=== PATIENT | male | born 1990 | race Two or more races ===

== ENCOUNTER 2024-08-21 12:12 | Emergency (ER) | payer SELFPAY ==
[2024-08-21 12:26] VITALS: BMI 25.2
[2024-08-21 14:28] LABS: BASO % 0.3 % (0-2.0); HEMATOCRIT 43.3 % (35.4-49); HEMOGLOBIN 14.7 GM/dL (11.7-16.9); LYMPH % 28.9 % (8-40); MCH 32.6 pg (25.7-33.7); MCHC 33.9 g/dl (32.0-35.9); MEAN CELL VOLUME 96.3 fl (80-96); MEAN PLT VOLUME 8.6 fl (7.5-11.1); MONO % 10.5 % (3.8-10.2); NEUT % 59.3 % (42.8-82.8); PLATELET COUNT 227 10^3/uL (134-434); RDW 13.7 % (11.9-15.9); WHITE BLOOD COUNT 4.8 K/mm3 (4.0-10.0)
[2024-08-21 14:31] LABS: VENOUS BASE EXCESS 2.2 mmol/L (-2-2); VENOUS O2 SATURATION 48.1 % (70-80); VENOUS PCO2 54.6 mmHg (38-52); VENOUS PH 7.347 (7.310-7.410)
[2024-08-21 14:47] LABS: MAGNESIUM 2.2 mg/dL (1.8-2.4)
[2024-08-21 14:48] LABS: ALBUMIN 4.2 g/dl (3.4-5.0); CALCIUM 9.1 mg/dL (8.5-10.1)
[2024-08-21 14:49] LABS: BLOOD UREA NITROGEN 20.4 mg/dL (7-18)
[2024-08-21 14:52] LABS: CREATININE 0.6 mg/dL (0.55-1.3)
[2024-08-21 14:53] LABS: BILIRUBIN,TOTAL 0.4 mg/dL (0.2-1)
[2024-08-21] MEDS ORDERED: chlordiazePOXIDE HCL 25 MG CAPSULE ONE (15:01)
[2024-08-21] MEDS ORDERED: THIAMINE HCL 200 MG/2 ML VIAL ONE (15:01)
[2024-08-21] MEDS ORDERED: ONDANSETRON 4 MG/2 ML VIAL ONE (15:01)
[2024-08-21] MEDS: chlordiazePOXIDE HCL 25 MG CAPSULE PO ONE (15:10)
[2024-08-21] MEDS: THIAMINE HCL 200 MG/2 ML VIAL IVPB ONE ×2 (15:10)
[2024-08-21] MEDS: ONDANSETRON 4 MG/2 ML VIAL IVPUSH ONE (15:10)
[2024-08-21 15:42] LABS: HIV INTERPRETATION NEGATIVE (NEGATIVE)
[2024-08-21] MEDS ORDERED: ACETAMINOPHEN 325 MG TABLET (FP) ONE (15:52)
[2024-08-21] MEDS: ACETAMINOPHEN 325 MG TABLET (FP) PO ONE (15:55)
[2024-08-21 15:58] VITALS: BP 115/75; PULSE 92; RESP 16
[2024-08-21 16:45] VITALS: TEMP 99
== END 2024-08-21 16:40 ==
LOC: JER 12:12
PROC: 3E033GC Introduction of Other Therapeutic Substance into Peripheral Vein, Percutaneous Approach (ICD-10-PCS; principal; 2024-08-21)
PROC: 3E033GC Introduction of Other Therapeutic Substance into Peripheral Vein, Percutaneous Approach (ICD-10-PCS; 2024-08-21)
DX: F10.930 Alcohol use, unspecified with withdrawal, uncomplicated (principal); Y90.9 Presence of alcohol in blood, level not specified; R11.2 Nausea with vomiting, unspecified; H53.8 Other visual disturbances; R51.9 Headache, unspecified; R25.1 Tremor, unspecified; L29.9 Pruritus, unspecified; M79.641 Pain in right hand; M25.531 Pain in right wrist; R10.9 Unspecified abdominal pain
CPT/HCPCS: 36415; 73110-TC-RT-FY; 73130-TC-RT-FY; 80053; 82010; 82803; 82962; 83690; 83735; 85025; 86803; 87389; 93005; 93010; 99285-25

== ENCOUNTER 2024-08-21 17:40 | Inpatient (IN) | payer SELFPAY ==
[2024-08-21 18:29] VITALS: BMI 25.0
[2024-08-21] MEDS ORDERED: BENZONATATE 200 MG CAPSULE PO PRN (20:24)
[2024-08-21] MEDS ORDERED: guaiFENesin 600 MG TABLET.ER (FP) PO PRN (20:24)
[2024-08-21] MEDS ORDERED: ACETAMINOPHEN 325 MG TABLET (FP) PO PRN (20:24)
[2024-08-21] MEDS ORDERED: hydrOXYzine PAMOATE 25 MG CAPSULE (FP) PO PRN (20:24)
[2024-08-21] MEDS ORDERED: BISMUTH SUBSALICYLATE 524 MG/30 ML PO PRN (20:24)
[2024-08-21] MEDS ORDERED: NICOTINE POLACRILEX 2 MG GUM BUC PRN (20:24)
[2024-08-21] MEDS ORDERED: METHOCARBAMOL 500 MG TABLET PO PRN (20:24)
[2024-08-21] MEDS ORDERED: ONDANSETRON *ODT* 4 MG TABLET SL PRN (20:24)
[2024-08-21] MEDS ORDERED: MAGNESIUM HYDROX 2400MG/30ML ORAL SUSPENSION 30 ML CUP PO PRN (20:24)
[2024-08-21] MEDS ORDERED: DICYCLOMINE HCL 10 MG CAPSULE PO PRN (20:24)
[2024-08-21] MEDS ORDERED: LOPERAMIDE HCL 2 MG CAPSULE PO PRN (20:24)
[2024-08-21] MEDS ORDERED: BENZOCAINE/MENTHOL (CHLORASEPTIC ) LOZENGE MM PRN (20:24)
[2024-08-21] MEDS ORDERED: IBUPROFEN 400 MG TABLET (FP) PO PRN (20:24)
[2024-08-21] MEDS ORDERED: NALOXONE (NARCAN) HCL 4 MG/0.1 ML SPRAY NS PRN (20:24)
[2024-08-21] MEDS ORDERED: MAG HYDROX/AL HYDROX/SIMETH 30 ML UNIT-DOSE CUP PO PRN (20:24)
[2024-08-21] MEDS ORDERED: POLYETHYLENE GLYCOL (HEALTHYLAX) 3350 17 GM PACKET PO PRN (20:24)
[2024-08-21] MEDS ORDERED: chlordiazePOXIDE HCL 25 MG CAPSULE PO PRN (20:27)
[2024-08-22] MEDS: THIAMINE 100 MG TABLET PO SCH (01:19)
[2024-08-22] MEDS: chlordiazePOXIDE HCL 25 MG CAPSULE PO SCH (01:19)
[2024-08-22] MEDS: MELATONIN 5 MG TABLETS PO SCH (01:20)
[2024-08-22] MEDS ORDERED: chlordiazePOXIDE HCL 25 MG CAPSULE ONE (01:21)
[2024-08-22] MEDS: NICOTINE 14 MG/24 HOURS TOPICAL PATCH TD SCH (10:43)
[2024-08-22] MEDS: PRENATAL VITAMINS W/ FOLIC ACID TABLET (FP) PO SCH (10:43)
[2024-08-22] MEDS: IBUPROFEN 600 MG TABLET (FP) PO PRN (12:13)
[2024-08-22] MEDS: QUEtiapine FUMARATE 50 MG TABLET PO SCH (12:13)
[2024-08-22] MEDS: NALTREXONE HCL 50 MG TABLET PO ONE (14:58)
[2024-08-22] MEDS: GABAPENTIN 100 MG CAPSULE PO SCH (14:58)
[2024-08-23] MEDS: chlordiazePOXIDE HCL 25 MG CAPSULE PO SCH (06:33)
[2024-08-23 09:06] VITALS: BP 130/94; PULSE 91; RESP 18; TEMP 98.7
[2024-08-23] MEDS: NALTREXONE HCL 50 MG TABLET PO SCH (09:19)
[2024-08-24] MEDS ORDERED: chlordiazePOXIDE HCL 10 MG CAPSULE PO PRN
[2024-08-24] MEDS ORDERED: chlordiazePOXIDE HCL 10 MG CAPSULE PO SCH (05:00)
[2024-08-25] MEDS ORDERED: chlordiazePOXIDE HCL 10 MG CAPSULE PO SCH (05:00)
[2024-08-26] MEDS ORDERED: chlordiazePOXIDE HCL 10 MG CAPSULE PO ONE (05:00)
== END 2024-08-23 09:50 | disposition home or self-care (01) | DRG 775 ==
LOC: YASAS 17:40 → Y6N 23:44
PROVIDERS: ADMIT Allergy & Immunology; ATTEND Allergy & Immunology
PROC: HZ2ZZZZ Detoxification Services for Substance Abuse Treatment (ICD-10-PCS; principal; 2024-08-21)
DX: F10.230 Alcohol dependence with withdrawal, uncomplicated (principal); F12.20 Cannabis dependence, uncomplicated; F17.210 Nicotine dependence, cigarettes, uncomplicated; F19.282 Other psychoactive substance dependence with psychoactive substance-induced sleep disorder; F19.280 Other psychoactive substance dependence with psychoactive substance-induced anxiety disorder; F32.9 Major depressive disorder, single episode, unspecified; Z62.810 Personal history of physical and sexual abuse in childhood; Z91.410 Personal history of adult physical and sexual abuse; Z63.8 Other specified problems related to primary support group; Z63.0 Problems in relationship with spouse or partner
CPT/HCPCS: 80305; 80307

== ENCOUNTER 2024-09-09 19:16 | Inpatient (IN) | payer SELFPAY ==
[2024-09-09 19:34] VITALS: BMI 25.2
[2024-09-09] MEDS ORDERED: BENZOCAINE/MENTHOL (CHLORASEPTIC ) LOZENGE MM PRN (19:45)
[2024-09-09] MEDS ORDERED: guaiFENesin 600 MG TABLET.ER (FP) PO PRN (19:45)
[2024-09-09] MEDS ORDERED: NALOXONE (NARCAN) HCL 4 MG/0.1 ML SPRAY NS PRN (19:45)
[2024-09-09] MEDS ORDERED: MAGNESIUM HYDROX 2400MG/30ML ORAL SUSPENSION 30 ML CUP PO PRN (19:45)
[2024-09-09] MEDS ORDERED: POLYETHYLENE GLYCOL (HEALTHYLAX) 3350 17 GM PACKET PO PRN (19:45)
[2024-09-09] MEDS ORDERED: MAG HYDROX/AL HYDROX/SIMETH 30 ML UNIT-DOSE CUP PO PRN (19:45)
[2024-09-09] MEDS ORDERED: NICOTINE POLACRILEX 2 MG LOZENGE BC PRN (19:45)
[2024-09-09] MEDS ORDERED: DICYCLOMINE HCL 10 MG CAPSULE PO PRN (19:45)
[2024-09-09] MEDS ORDERED: IBUPROFEN 400 MG TABLET (FP) PO PRN (19:45)
[2024-09-09] MEDS ORDERED: NICOTINE POLACRILEX 2 MG GUM BUC PRN (19:45)
[2024-09-09] MEDS ORDERED: ONDANSETRON *ODT* 4 MG TABLET SL PRN (19:45)
[2024-09-09] MEDS ORDERED: BENZONATATE 200 MG CAPSULE PO PRN (19:45)
[2024-09-09] MEDS ORDERED: diazePAM 5 MG TABLET PO ONE (20:00)
[2024-09-09] MEDS ORDERED: diazePAM 5 MG TABLET ONE (21:56)
[2024-09-09] MEDS: MELATONIN 5 MG TABLETS PO SCH (22:05)
[2024-09-09] MEDS: THIAMINE 100 MG TABLET PO SCH (22:05)
[2024-09-09] MEDS: diazePAM 5 MG TABLET PO ONE (22:05)
[2024-09-09] MEDS ORDERED: diazePAM 5 MG TABLET PO SCH (23:00)
[2024-09-09] MEDS: diazePAM 5 MG TABLET PO SCH (23:00)
[2024-09-09] MEDS: ACETAMINOPHEN 325 MG TABLET (FP) PO PRN (23:22)
[2024-09-09] MEDS: METHOCARBAMOL 500 MG TABLET PO PRN (23:23)
[2024-09-09] MEDS: hydrOXYzine PAMOATE 50 MG CAPSULE (FP) PO ONE (23:37)
[2024-09-10] MEDS: IBUPROFEN 600 MG TABLET (FP) PO PRN (07:49)
[2024-09-10] MEDS: PRENATAL VITAMINS W/ FOLIC ACID TABLET (FP) PO SCH (10:06)
[2024-09-10] MEDS: NICOTINE 7 MG/24 HOURS TOPICAL PATCH TD SCH (10:07)
[2024-09-10] MEDS: diazePAM 5 MG TABLET PO PRN (13:12)
[2024-09-10] MEDS: GABAPENTIN 100 MG CAPSULE PO SCH (13:13)
[2024-09-10] MEDS: METHOCARBAMOL 500 MG TABLET PO PRN (13:13)
[2024-09-10] MEDS: LOPERAMIDE HCL 2 MG CAPSULE PO PRN (13:13)
[2024-09-10] MEDS: BISMUTH SUBSALICYLATE 524 MG/30 ML PO PRN (17:30)
[2024-09-11] MEDS: diazePAM 5 MG TABLET PO SCH (05:06)
[2024-09-11] MEDS ORDERED: diazePAM 5 MG TABLET PO SCH (06:00)
[2024-09-11 09:16] VITALS: BP 119/72; PULSE 78; RESP 17; TEMP 98.2
[2024-09-11 11:38] LABS: BASO % 0.1 % (0-2.0); EOS % 1.9 % (0-4.5); HEMATOCRIT 41.3 % (35.4-49); HEMOGLOBIN 14.1 GM/dL (11.7-16.9); LYMPH % 23.7 % (8-40); MCH 32.6 pg (25.7-33.7); MEAN CELL VOLUME 95.9 fl (80-96); MEAN PLT VOLUME 8.5 fl (7.5-11.1); MONO % 8.8 % (3.8-10.2); NEUT % 65.5 % (42.8-82.8); PLATELET COUNT 254 10^3/uL (134-434); RBC 4.31 M/mm3 (4.00-5.60); RDW 13.7 % (11.9-15.9); WHITE BLOOD COUNT 4.6 K/mm3 (4.0-10.0)
[2024-09-11 11:41] LABS: POTASSIUM 5.4 mmol/L (3.5-5.1)
[2024-09-11 11:43] LABS: CALCIUM 9.1 mg/dL (8.5-10.1)
[2024-09-11 11:44] LABS: ALBUMIN 3.4 g/dl (3.4-5.0)
[2024-09-11 11:45] LABS: BLOOD UREA NITROGEN 16.5 mg/dL (7-18)
[2024-09-11 11:48] LABS: CREATININE 0.8 mg/dL (0.55-1.3)
[2024-09-11 11:49] LABS: BILIRUBIN,TOTAL 0.4 mg/dL (0.2-1); TOT PROT 6.4 g/dl (6.4-8.2)
[2024-09-12] MEDS ORDERED: diazePAM 5 MG TABLET PO SCH (06:00)
[2024-09-13] MEDS ORDERED: diazePAM 5 MG TABLET PO ONE (06:00)
== END 2024-09-11 10:08 | disposition left against medical advice (07) | DRG 770 ==
LOC: YASAS 19:16 → Y3N 22:24
PROVIDERS: ADMIT Allergy & Immunology; ATTEND Allergy & Immunology
PROC: HZ2ZZZZ Detoxification Services for Substance Abuse Treatment (ICD-10-PCS; principal; 2024-09-09)
DX: F10.230 Alcohol dependence with withdrawal, uncomplicated (principal); F12.20 Cannabis dependence, uncomplicated; F17.210 Nicotine dependence, cigarettes, uncomplicated; F32.9 Major depressive disorder, single episode, unspecified; Z86.69 Personal history of other diseases of the nervous system and sense organs
CPT/HCPCS: 36415; 80053; 80305; 80307; 85025; 86803

== ENCOUNTER 2024-12-25 02:12 | Emergency (ER) | payer SELFPAY ==
[2024-12-25 02:20] VITALS: TEMP 99.1; BMI 25.0
[2024-12-25] MEDS: ONDANSETRON *ODT* 4 MG TABLET SL ONE (02:47)
[2024-12-25] MEDS ORDERED: ACETAMINOPHEN INJECTION 100 ML ONE (03:18)
[2024-12-25] MEDS ORDERED: ONDANSETRON 4 MG/2 ML VIAL ONE (03:18)
[2024-12-25] MEDS: ACETAMINOPHEN 1000 MG/100 ML BAG IVPB ONE (03:25)
[2024-12-25] MEDS: ONDANSETRON 4 MG/2 ML VIAL IVPUSH ONE (03:26)
[2024-12-25] MEDS ORDERED: KETOROLAC TROMETHAMINE 15 MG/ML VIAL ONE (03:55)
[2024-12-25] MEDS ORDERED: chlordiazePOXIDE HCL 10 MG CAPSULE ONE (03:55)
[2024-12-25] MEDS: KETOROLAC TROMETHAMINE 15 MG/ML VIAL IVPUSH ONE (04:00)
[2024-12-25] MEDS: chlordiazePOXIDE HCL 10 MG CAPSULE PO ONE (04:00)
[2024-12-25 06:14] VITALS: BP 134/80; PULSE 84; RESP 16
== END 2024-12-25 06:20 | disposition home or self-care (01) ==
LOC: JER 02:12
PROC: 3E033NZ Introduction of Analgesics, Hypnotics, Sedatives into Peripheral Vein, Percutaneous Approach (ICD-10-PCS; principal; 2024-12-25)
PROC: 3E0333Z Introduction of Anti-inflammatory into Peripheral Vein, Percutaneous Approach (ICD-10-PCS; 2024-12-25)
PROC: 3E033GC Introduction of Other Therapeutic Substance into Peripheral Vein, Percutaneous Approach (ICD-10-PCS; 2024-12-25)
DX: M25.521 Pain in right elbow (principal); M25.421 Effusion, right elbow; W01.0XXA Fall on same level from slipping, tripping and stumbling without subsequent striking against object, initial encounter
CPT/HCPCS: 73030-TC-RT-FY; 73070-TC-RT-FY; 73090-TC-RT-FY; 99284-25